=== PATIENT | male | born 1965 | race Caucasian/White ===

== ENCOUNTER 2020-09-19 16:20 | Emergency (ER) | payer OTHER ==
[2020-09-19 16:41] VITALS: BP 162/84; PULSE 88; TEMP 98.2; BMI 25.8
== END 2020-09-19 17:07 | disposition home or self-care (01) ==
LOC: JERFT 16:20 → JER 16:20 → JERFT 17:07
DX: S31.21XA Laceration without foreign body of penis, initial encounter (principal)
CPT/HCPCS: 99282-25

== ENCOUNTER 2021-01-01 19:31 | Emergency (ER) | payer OTHER ==
[2021-01-01 20:40] VITALS: BMI 25.8
[2021-01-01] MEDS ORDERED: MAG HYDROX/AL HYDROX/SIMETH -MYLANTA- ORAL SUSPENSION PO ONE (21:16)
[2021-01-01] MEDS ORDERED: FAMOTIDINE 20 MG TABLET PO ONE (21:16)
[2021-01-01 22:22] LABS: BASO % 0.5 % (0-2.0); EOS % 4.7 % (0-4.5); HEMATOCRIT 38.9 % (35.4-49); HEMOGLOBIN 13.5 GM/dL (11.7-16.9); LYMPH % 34.8 % (8-40); MCH 30.6 pg (25.7-33.7); MCHC 34.6 g/dl (32.0-35.9); MEAN CELL VOLUME 88.4 fl (80-96); MEAN PLT VOLUME 6.9 fl (7.5-11.1); MONO % 10.5 % (3.8-10.2); NEUT % 49.5 % (42.8-82.8); PLATELET COUNT 360 10^3/uL (134-434); RDW 13.4 % (11.9-15.9); WHITE BLOOD COUNT 8.1 K/mm3 (4.0-10.0)
[2021-01-01] MEDS ORDERED: FAMOTIDINE 20 MG TABLET ONE (22:26)
[2021-01-01] MEDS ORDERED: MAG HYDROX/AL HYDROX/SIMETH 30 ML UNIT-DOSE CUP ONE (22:27)
[2021-01-01 22:43] LABS: CHLORIDE 107 mmol/L (98-107); SODIUM 142 mmol/L (136-145)
[2021-01-01 22:45] LABS: CALCIUM 8.2 mg/dL (8.5-10.1)
[2021-01-01 22:46] LABS: ALBUMIN 3.3 g/dl (3.4-5.0); ANION GAP 6 MMOL/L (8-16); BLOOD UREA NITROGEN 11.9 mg/dL (7-18); CO2 28 mmol/L (21-32); GLUCOSE,RANDOM 83 mg/dL (74-106)
[2021-01-01 22:49] LABS: CREATININE 1.6 mg/dL (0.55-1.3); SGOT/AST 22 U/L (15-37); SGPT/ALT 22 U/L (13-61)
[2021-01-01 22:50] LABS: BILIRUBIN,TOTAL 0.4 mg/dL (0.2-1); TOT PROT 6.5 g/dl (6.4-8.2)
[2021-01-01 22:51] LABS: ALK PHOS 42 U/L (45-117)
[2021-01-01 22:59] LABS: INR 0.96 (0.83-1.09); PROTHROMBIN TIME (PATIENT) 11.6 SEC (9.7-13.0)
[2021-01-01] MEDS ORDERED: ACETAMINOPHEN 1000 MG/100 ML VIAL (NON FORMULARY) IVPB ONE (23:14)
[2021-01-01] MEDS ORDERED: SODIUM CHLORIDE 0.9% 500 ML INFUS.BAG IV ONE (23:14)
[2021-01-01] MEDS ORDERED: ACETAMINOPHEN INJECTION 100 ML IVPB ONE (23:29)
[2021-01-02 00:04] LABS: LIPASE 54 U/L (73-393)
[2021-01-02 01:24] LABS: CREATININE 1.3 mg/dL (0.55-1.3)
[2021-01-02 01:53] VITALS: BP 112/67; PULSE 60; TEMP 98.7
== END 2021-01-02 02:47 | disposition home or self-care (01) ==
LOC: JER 19:31
PROC: 3E0333Z Introduction of Anti-inflammatory into Peripheral Vein, Percutaneous Approach (ICD-10-PCS; principal; 2021-01-01)
DX: R07.89 Other chest pain (principal)
CPT/HCPCS: 36415; 71046-TC-FY; 80053; 82550; 82553; 82565; 83690; 84484; 85025; 85379; 85610; 85730; 93005; 93010; 96374; 99285-25; J0131